=== PATIENT | male | born 1970 | race Caucasian/White ===

== ENCOUNTER 2019-07-17 10:58 | Emergency (ER) | payer OTHER ==
[~2019-07-17] VITALS: Ht 177.8 cm; Wt 130.9 kg
[2019-07-17 11:08] VITALS: TEMP 97.5
[2019-07-17 12:02] LABS: BASO % 0.4 % (0.0-2.0); EOS # 0.2 (0.0-0.7); EOS % 2.2 % (0-4.0); GRAN # 7.5 (1.4-6.5); GRAN % 73.9 % (42.2-75.2); HEMOGLOBIN 16.6 g/dl (13.5-18.0); LYMPH # 1.4 (1.2-3.4); MEAN CELL VOLUME 89 fl (80.0-100.0); MEAN CORPUSCULAR HEMOGLOBIN 31 pg (27.0-31.0); MEAN CORPUSCULAR HGB CONC 35 g/dl (33.0-37.0); MEAN PLATELET VOLUME 9.7 fl (7.4-10.4); MONO # 0.9 (0.1-0.6); MONO % 8.8 % (1.7-9.3); PLATELET COUNT 214 K/mm3 (130-400); RED BLOOD COUNT 5.39 M/mm3 (4.20-5.60); REDCELL DISTRIBUTION WIDTH-CV 12.8 % (11.5-14.5)
[2019-07-17 12:22] LABS: ALBUMIN 4.3 gm/dL (3.5-5.0); CALCIUM 9.1 mg/dL (8.4-10.2); CREATININE, serum 1.09 (0.66-1.25); MAGNESIUM 1.8 mg/dL (1.6-2.3); POTASSIUM 3.6 mmol/L (3.4-5.0); TOTAL PROTEIN 7.5 gm/dL (6.4-8.2)
[2019-07-17] MEDS ORDERED: ZOFRAN ODT4 MG PO (15:13)
[2019-07-17 15:48] VITALS: BP 131/81; PULSE 87
== END 2019-07-17 15:48 | disposition home or self-care (01) ==
LOC: COL.ER 10:58
PROVIDERS: Emergency Medicine
DX: R19.7 Diarrhea, unspecified (principal); Z90.89 Acquired absence of other organs
CPT/HCPCS: J2405; J7030